=== PATIENT | male | born 1995 | race African-American/Black ===

== ENCOUNTER 2018-04-20 11:09 | Emergency (ER) | payer SELFPAY ==
[2018-04-20 12:08] LABS: APPEARANCE,URINE Clear (CLEAR); BILIRUBIN,URINE Small (NEGATIVE); COLOR,URINE Dark Yellow (YELLOW); GLUCOSE, URINE (UA) Negative (NEGATIVE); KETONES,URINE 40 mg/dL (NEGATIVE); LEUKOCYTE ESTERASE ,URINE Negative (NEGATIVE); NITRATE,URINE Negative (NEGATIVE); OCCULT BLOOD,URINE Negative (NEGATIVE); PH,URINE 5.5 (5.0-8.0); PROTEIN,URINE POS 1+ (NEGATIVE)
[2018-04-20] MEDS ORDERED: ONDANSETRON HCL 4 MG/2 ML VIAL ONE (12:16)
[2018-04-20] MEDS ORDERED: KETOROLAC TROMETHAMINE 30MG/ML ONE (12:16)
[2018-04-20 12:26] LABS: BASOPHILS % (AUTO) 0.3 % (0.0-5.0); EOSINOPHILS % (AUTO) 0.9 % (0.0-8.0); HEMATOCRIT 44.9 % (42-54); LYMPHOCYTES % (AUTO) 11.7 % (21.0-51.0); MEAN CORPUSCULAR HEMOGLOBIN 28.5 pg (27.0-33.0); MEAN CORPUSCULAR HGB CONC 33.5 g/dL (32.0-36.0); MONOCYTES % (AUTO) 10.2 % (3.0-13.0); NEUTROPHILS % (AUTO) 76.9 % (40.0-77.0); PLATELET COUNT (AUTO) 294 K/uL (130-400); RED BLOOD CELL COUNT(AUTO) 5.28 MIL/uL (4.50-6.20); RED CELL DISTRIBUTION WIDTH 13.7 % (11.0-15.5); WHITE BLOOD COUNT (AUTO) 12.1 K/uL (4.8-10.8)
[2018-04-20 12:30] LABS: BACTERIA,URINE None Seen /HPF (None Seen); MUCUS,URINE Moderate LPF (None Seen); RBC,URINE 0-1 /HPF (0-1); WBC,URINE 0-1 /HPF (0-1)
[2018-04-20 12:41] LABS: POTASSIUM 3.6 mmol/L (3.5-5.1)
[2018-04-20 12:45] LABS: ALBUMIN 3.5 g/dL (3.5-5.0); BILIRUBIN,TOTAL 0.3 mg/dL (0.2-1.0)
[2018-04-20] MEDS ORDERED: IOHEXOL-350 75 ML VIAL IV ONE (13:38)
== END 2018-04-20 15:14 | disposition home or self-care (01) ==
LOC: EDH 11:09
DX: K52.9 Noninfective gastroenteritis and colitis, unspecified (principal); F12.10 Cannabis abuse, uncomplicated; Z88.0 Allergy status to penicillin; Z72.0 Tobacco use
CPT/HCPCS: 36415; 74177; 80053; 81001; 83690; 85025; 96361; 96374; 96375; 99284; J1885; J2405; Q9967

== ENCOUNTER 2018-07-09 19:15 | Emergency (ER) | payer OTHER | END 2018-07-09 20:24 | disposition left against medical advice (07) | LOC: EDH 19:15 | DX: T67.1XXA Heat syncope, initial encounter (principal); J45.909 Unspecified asthma, uncomplicated; I10 Essential (primary) hypertension; Z88.0 Allergy status to penicillin; Z72.0 Tobacco use; X30.XXXA Exposure to excessive natural heat, initial encounter; Y93.89 Activity, other specified; Y92.89 Other specified places as the place of occurrence of the external cause; Y99.8 Other external cause status | CPT/HCPCS: 99281 ==

== ENCOUNTER 2018-12-17 09:28 | Emergency (ER) | payer OTHER | END 2018-12-17 10:24 | disposition home or self-care (01) | LOC: EDH 09:28 | DX: K62.5 Hemorrhage of anus and rectum (principal); J45.909 Unspecified asthma, uncomplicated; I10 Essential (primary) hypertension; Z72.0 Tobacco use; Z88.0 Allergy status to penicillin ==

== ENCOUNTER 2020-12-31 22:49 | Emergency (ER) | payer OTHER ==
[~2020-12-31] VITALS: Ht 175.3 cm; Wt 158.8 kg
[2020-12-31 23:25] LABS: BASOPHILS % (AUTO) 0.3 % (0.0-5.0); EOSINOPHILS % (AUTO) 2.2 % (0.0-8.0); HEMATOCRIT 42.6 % (42-54); LYMPHOCYTES % (AUTO) 12.4 % (21.0-51.0); MEAN CORPUSCULAR HEMOGLOBIN 27.6 pg (27.0-33.0); MEAN CORPUSCULAR HGB CONC 32.9 g/dL (32.0-36.0); MEAN CORPUSCULAR VOLUME 83.9 fL (79-99); MONOCYTES % (AUTO) 7.6 % (3.0-13.0); NEUTROPHILS % (AUTO) 77.2 % (40.0-77.0); PLATELET COUNT (AUTO) 349 K/uL (130-400); RED BLOOD CELL COUNT(AUTO) 5.08 MIL/uL (4.50-6.20); RED CELL DISTRIBUTION WIDTH 13.9 % (11.0-15.5); WHITE BLOOD COUNT (AUTO) 12.9 K/uL (4.8-10.8)
[2020-12-31 23:33] LABS: CARBON DIOXIDE 34 mmol/L (21-32); CHLORIDE 100 mmol/L (101-111); CREATININE 0.8 mg/dL (0.5-1.5); GLOMERULAR FILTR. RATE CALC 149 mL/min (>60); GLUCOSE,RANDOM 85 mg/dL (70-105); POTASSIUM 3.3 mmol/L (3.5-5.1); SODIUM SERUM 138 mmol/L (136-145); UREA NITROGEN, BLOOD 9 mg/dL (7-18)
[2020-12-31 23:38] LABS: ALANINE AMINOTRANSFERASE 35 U/L (12-78); ALBUMIN 3.6 g/dL (3.5-5.0); ALCOHOL, BLOOD < 3 mg/dL (0-10); ASPARTATE AMINOTRANSFERASE 28 U/L (10-37); BILIRUBIN,TOTAL 0.5 mg/dL (0.2-1.0); TOTAL PROTEIN, SERUM 8.3 g/dL (6.0-8.3)
[2020-12-31 23:52] LABS: B-TYPE NATRIURETIC PEPTIDE 6 pg/mL (0-100)
[2021-01-01 00:55] LABS: APPEARANCE,URINE Clear (CLEAR); BILIRUBIN,URINE Negative (NEGATIVE); COLOR,URINE Yellow (YELLOW); GLUCOSE, URINE (UA) Negative (NEGATIVE); KETONES,URINE Negative (NEGATIVE); LEUKOCYTE ESTERASE ,URINE Negative (NEGATIVE); NITRATE,URINE Negative (NEGATIVE); OCCULT BLOOD,URINE Negative (NEGATIVE); PH,URINE 6.5 (5.0-8.0); PROTEIN,URINE Negative (NEGATIVE); UROBILINOGEN,URINE >=8.0 mg/dL (0.2-1.0)
[2021-01-01 01:16] LABS: AMPHET/METH SCREEN,URINE POSITIVE (NEGATIVE); BARBITURATE SCREEN, URINE NEGATIVE (NEGATIVE); BENZODIAZEPINES SCREEN,URINE NEGATIVE (NEGATIVE); CANNABINOID SCREEN,URINE POSITIVE (NEGATIVE); COCAINE SCREEN,URINE POSITIVE (NEGATIVE); OPIATE SCREEN,URINE NEGATIVE (NEGATIVE); PHENCYCLIDINE SCREEN,URINE NEGATIVE (NEGATIVE)
[2021-01-01 01:20] VITALS: BP 140/78
== END 2021-01-01 01:45 | disposition home or self-care (01) ==
LOC: EDH 22:49
DX: R60.0 Localized edema (principal); F19.10 Other psychoactive substance abuse, uncomplicated; F17.210 Nicotine dependence, cigarettes, uncomplicated; Z88.0 Allergy status to penicillin
CPT/HCPCS: 36415; 71045; 80053; 80305; 81003; 83880; 84484; 85025; 93005

== ENCOUNTER 2022-07-13 02:51 | Emergency (ER) | payer BC ==
[~2022-07-13] VITALS: Ht 175.3 cm; Wt 174.6 kg
[2022-07-13] MEDS ORDERED: TETANUS/DIPHTHERIA TOXOID [ADULT] 0.5 ML VIAL IM ONE (03:30)
[2022-07-13] MEDS ORDERED: KETOROLAC 60 MG VIAL (30MG/ML) IM ONE (04:00)
[2022-07-13] MEDS ORDERED: CLINDAMYCIN 150 MG CAP PO ONE (04:00)
[2022-07-13 05:56] LABS: BASOPHILS % (AUTO) 0.2 % (0.0-5.0); EOSINOPHILS % (AUTO) 1.4 % (0.0-8.0); HEMATOCRIT 41.8 % (42-54); LYMPHOCYTES % (AUTO) 9.2 % (21.0-51.0); MEAN CORPUSCULAR HEMOGLOBIN 26.6 pg (27.0-33.0); MEAN CORPUSCULAR HGB CONC 32.3 g/dL (32.0-36.0); MEAN CORPUSCULAR VOLUME 82.4 fL (79-99); MONOCYTES % (AUTO) 5.4 % (3.0-13.0); NEUTROPHILS % (AUTO) 83.4 % (40.0-77.0); PLATELET COUNT (AUTO) 403 K/uL (130-400); RED BLOOD CELL COUNT(AUTO) 5.07 MIL/uL (4.50-6.20); RED CELL DISTRIBUTION WIDTH 13.7 % (11.0-15.5); WHITE BLOOD COUNT (AUTO) 17.3 K/uL (4.8-10.8)
[2022-07-13] MEDS ORDERED: FLUORESCEIN SODIUM 1 STRIP STRIP OP SCH (06:00)
[2022-07-13] MEDS ORDERED: TETRACAINE HCL 0.5% 4 ML OPHTH SOLN OP SCH (06:00)
[2022-07-13 06:04] LABS: POTASSIUM 3.8 mmol/L (3.5-5.1)
[2022-07-13 06:09] LABS: ALBUMIN 3.3 g/dL (3.5-5.0)
[2022-07-13] MEDS ORDERED: DEXAMETHASONE SOD PHOSPHATE 4 MG/ML 1ML VIAL IVP ONE (07:00)
[2022-07-13] MEDS ORDERED: ERYTHROMYCIN BASE 0.5% OPHTH OINT 1 GM TUBE OU SCH (07:00)
[2022-07-13] MEDS ORDERED: METH4TAB3 PO (07:14)
[2022-07-13] MEDS ORDERED: CLIN-141 PO (07:14)
[2022-07-13] MEDS ORDERED: IBUP-2077 PO (07:14)
[2022-07-13 09:58] VITALS: BP 142/88
== END 2022-07-13 10:18 | disposition home or self-care (01) ==
LOC: EDH 02:51
DX: S02.832A Fracture of medial orbital wall, left side, initial encounter for closed fracture (principal); S01.05XA Open bite of scalp, initial encounter; S01.01XA Laceration without foreign body of scalp, initial encounter; T74.21XA Adult sexual abuse, confirmed, initial encounter; I10 Essential (primary) hypertension; Z88.0 Allergy status to penicillin; M79.642 Pain in left hand; W54.0XXA Bitten by dog, initial encounter; Y93.89 Activity, other specified; Y92.89 Other specified places as the place of occurrence of the external cause; Y99.8 Other external cause status
CPT/HCPCS: 99285; 70450; 96374; 80053; 85025; 36415; 90714; 73630; 73590; 72125; 90471; 12002; 96372; J1100; J1885

== ENCOUNTER 2023-07-30 11:41 | Emergency (ER) | payer BC, OTHER ==
[~2023-07-30] VITALS: Ht 175.3 cm; Wt 158.8 kg
[~2023-07-30 11:41] MED LIST: CLIN-141 PO; IBUP-2077 PO; METH4TAB3 PO
[2023-07-30] MEDS: TETANUS/DIPHTHERIA TOXOID [ADULT] 0.5 ML VIAL IM ONE (14:06)
[2023-07-30] MEDS ORDERED: SULF1TAB42 PO (15:03)
[2023-07-30 15:26] VITALS: BP 144/85; PULSE 91; RESP 20; O2SAT 99
[2023-07-30] MEDS: LIDOCAINE 1%-EPI 1:100,000 20 ML VIAL IJ SCH (15:33)
[2023-07-30] MEDS: LIDOCAINE 1%-EPI 1:100,000 20 ML VIAL ONE (15:34)
== END 2023-07-30 16:04 | disposition home or self-care (01) ==
LOC: EEVIPCON 11:41 → EDH 11:41
DX: S81.811A Laceration without foreign body, right lower leg, initial encounter (principal); Z88.0 Allergy status to penicillin; Z79.899 Other long term (current) drug therapy; W45.8XXA Other foreign body or object entering through skin, initial encounter; Y93.89 Activity, other specified; Y92.89 Other specified places as the place of occurrence of the external cause; Y99.8 Other external cause status
CPT/HCPCS: 99284; 73590; 12002; J3490; 90714